=== PATIENT | male | born 1985 | race Caucasian/White ===

== ENCOUNTER → 2021-08-05 11:37 | Outpatient (BNVA) | payer MEDICARE, MEDICAID, SELFPAY | PROVIDERS: PCP Internal Medicine; Visit Provider Nurse Practitioner Family | DX: R56.9 Unspecified convulsions (principal); F31.9 Bipolar disorder, unspecified; Z79.899 Other long term (current) drug therapy | CPT/HCPCS: 99212 ==

== ENCOUNTER → 2022-01-20 09:24 | Outpatient (BNVA) | payer MEDICARE, SELFPAY | PROVIDERS: PCP Internal Medicine; Visit Provider Nurse Practitioner Family | DX: R56.9 Unspecified convulsions (principal); F31.9 Bipolar disorder, unspecified; R06.83 Snoring; G47.19 Other hypersomnia | CPT/HCPCS: 99212 ==

== ENCOUNTER → 2022-02-02 16:03 | Outpatient (REF) | payer OTHER, SELFPAY | LOC: HO.SL 16:03 | PROVIDERS: PCP Internal Medicine; Visit Provider Nurse Practitioner Family | DX: R06.83 Snoring (principal); G47.19 Other hypersomnia; R56.9 Unspecified convulsions | CPT/HCPCS: 95806 ==

== ENCOUNTER 2023-03-31 14:13 | Outpatient (AMB) | payer OTHER, SELFPAY ==
--- NOTE | 2023-03-31 14:18 | MHC.OFFVIS ---
Intake Vital Signs 03/31/23 14:31 Height 5 ft 11 in Weight 193 lb BMI 26.9 BP 124/76 Blood Pressure Location Rt brachial Position Sitting Pulse 70 Pulse Source Pulse Oximeter Pulse Oximetry (%) 98 Oxygen Delivery Method Room Air Intake Visit Reasons: f/u for seizures disorders - Confirmed Intake Note: Patient presents for follow up seizures. I think I had a seizure maybe last month Allergies No Known Allergies Allergy (Verified 03/31/23 14:31) Medication List - Last Reconciled 03/31/23 by SATHYA Cain amlodipine 2.5 mg PO DAILY aspirin 81 mg PO DAILY atorvastatin 80 mg PO DAILY clonazepam 2 mg orally for seizure lasting > 2 minutes. 30 days clopidogrel 75 mg PO DAILY divalproex ER 4 tabs qam & 5 tabs qhs PO; 90 days lisinopril 2.5 mg PO DAILY HPI HPI Comments History of Present Illness Details 37-yr-old male presents for f/u visit, last visit was just over a year ago. Pt denies any significant interval medical changes. He states his cardiac status is stable. Pt states his machine bander and cellophaner helper tells him that his HR may be a bit higher at times. He has lost about 30 lbs in the last yr- eating less, sometimes 1 meal a day. He is doing some CONTRACT DESIGNER work. Pt does note a lot of increased stress r/t his mother being ill, his grandmother is in end of life care, and he is now living back at home to help his dad. He is now being f/b psychiatry and a therapist- on quetiapine 100mg qhs for bipolar and sleep. His last seizure was one month ago, the previous one was in October- just after his mom had gone to the hospital. These were both typical nocturnal seizures a/w urinary incontinence. Compliant w/ Depakote ER bid- however may take at different times d/t inconsistent sleep/wake habits d/t now living back home. HST, 02/2022, did not show sleep apnea- AHI was 0.4/hr w/ average SpO2 91% and O2 [place] 81% (SpO2 < 88% x's 1.9min and < 90% x's 47 min). PFSH Family History Father HTN (hypertension) Arthritis Mother HTN (hypertension) Diabetes mellitus Depression Anxiety Social History Alcohol intake: former Patient Tobacco Use Status: Never used Tobacco Substance Use Type: Marijuana Review of Systems Const All systems reviewed & are unremarkable except as noted in HPI and below Physical Exam Vital Signs: Last Vital Signs Pulse 70 03/31/23 14:31 BP 124/76 03/31/23 14:31 Pulse Ox 98 03/31/23 14:31 Oxygen Delivery Method Room Air 03/31/23 14:31 BMI result Body Mass Index 26.9 Const General: cooperative and no acute distress Orientation/consciousness: patient oriented x3 HEENT Head: Yes normocephalic Resp Effort & Inspection: normal respiratory effort and able to speak in complete sentences Neuro General: patient oriented x3, gait normal and CN's II-XI intact bilaterally Cognition (Neuro): normal cognition Motor exam (neuro): 5/5 motor strength present throughout Psych Appearance: grossly normal Mental Status: mental status grossly normal Speech and movement: Normal speech and movement present Affect: normal affect Attitude: cooperative Thought process: Normal thought process present Thought content: Normal thought content present Insight: Good insight present (Psych) Judgement: Good judgement present (Psych) Assessment & Plan Assessment & Plan (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 Continue Clonazepam 2mg ODT for breakthrough seizure lasting > 2 min. Check CBC, CMP, depakote levels today- lab slips given today. Reviewed HST- no evidence of sleep apnea. Quetiapine per psychiatry. Continue CV risk reduction tx per cardiology. f/u in 6 months or sooner prn Orders: Orders Complete Blood Count Auto Diff Today R56.9 - Unspecified convulsions Comprehensive Met. Panel Today R56.9 - Unspecified convulsions Valproate Today R56.9 - Unspecified convulsions Medications: New quetiapine 100 mg PO BEDTIME Refilled divalproex ER 4 tabs qam & 5 tabs qhs PO; 810 tabs 1RF 90 days Coding Level of Care Code Est Pt Level 4 (77904) Diagnoses Seizures R56.9 Sleep difficulties G47.9
[2023-03-31 14:31] VITALS: BP 124/76; PULSE 70; O2SAT 98; BMI 26.9
== END 2023-03-31 15:09 | disposition home or self-care (01) ==
PROVIDERS: PCP Internal Medicine; Visit Provider Nurse Practitioner Family
DX: R56.9 Unspecified convulsions (principal); G47.9 Sleep disorder, unspecified
CPT/HCPCS: 99214

== ENCOUNTER → 2023-03-31 14:13 | Outpatient (BNVA) | payer OTHER, SELFPAY | PROVIDERS: PCP Internal Medicine; Visit Provider Nurse Practitioner Family | DX: R56.9 Unspecified convulsions (principal); G47.9 Sleep disorder, unspecified | CPT/HCPCS: 99212 ==

== ENCOUNTER 2023-11-04 08:36 | Outpatient (AMB) | payer OTHER, SELFPAY ==
[2023-11-04 08:41] VITALS: BP 130/92; PULSE 77; O2SAT 98; BMI 27.6
--- NOTE | 2023-11-04 08:41 | A.OFFVIS_ITS ---
Vital Signs 11/04/23 08:41 Height 5 ft 11 in Weight 198 lb BMI 27.6 BP 130/92 H Blood Pressure Location Rt brachial Position Sitting Pulse 77 Pulse Source Pulse Oximeter Pulse Oximetry (%) 98 Oxygen Delivery Method Room Air Intake Visit Reasons: Follow up Intake Note: Patient presents for follow up. patient last epilepsy attsck was in February 2023 Allergies No Known Allergies Allergy (Verified 11/04/23 08:44) Medication List - Last Reconciled 11/04/23 by SATHYA Cain amlodipine 2.5 mg PO DAILY aspirin 81 mg PO DAILY atorvastatin 80 mg PO DAILY clonazepam 2 mg orally for seizure lasting > 2 minutes. 30 days clopidogrel 75 mg PO DAILY divalproex ER 4 tabs qam & 5 tabs qhs PO; 90 days lisinopril 2.5 mg PO DAILY pramipexole mg PO quetiapine 100 mg PO BEDTIME HPI Comments Details: 38-yr-old male presents for f/u visit of seizure. Pt denies any significant interval medical changes, however pt states that he has not been taking his cardiac meds as he has not had f/u w/ cardiology in a long time. States he missed his recent f/u here and w/ cardiology d/t issues with transportation and his mother is quite ill- now living in a intermediate but needing frequent hospitalizations. Pt is mildy hypertensive today- 130/92 w/ HR 77. He states his psychiatrist started him on pramipexole for his Bipolar tx- states he did have some lightheadedness initially but this resolved. He states his last seizure was in February. He is complaint w/ his AED tx. Last CBB, CMP, Depakote levels- WNL. PFSH Family History Father HTN (hypertension) Arthritis Mother HTN (hypertension) Diabetes mellitus Depression Anxiety Social History Alcohol intake: former Patient Tobacco Use Status: Never used Tobacco Substance Use Type: Marijuana Physical Exam Vital Signs: Last Vital Signs Pulse 77 11/04/23 08:41 BP 130/92 H 11/04/23 08:41 Pulse Ox 98 11/04/23 08:41 Oxygen Delivery Method Room Air 11/04/23 08:41 BMI result Body Mass Index 27.6 Const General: cooperative and no acute distress Orientation/consciousness: patient oriented x3 Resp Effort & Inspection: normal respiratory effort and able to speak in complete sentences Neuro General: patient oriented x3 Cranial nerves: Yes CN's II-XII intact bilaterally Cognition (Neuro): normal cognition Psych Appearance: grossly normal Mental Status: mental status grossly normal Speech and movement: Normal speech and movement present Affect: normal affect Attitude: cooperative Assessment & Plan Assessment & Plan (1) Seizures: Comment: Juvenile myotonic epilepsy Code(s): R56.9 - Unspecified convulsions Category: Medical (2) Bipolar disorder: Code(s): F31.9 - Bipolar disorder, unspecified Category: Medical (3) HTN (hypertension): Code(s): I10 - Essential (primary) hypertension Category: Medical (4) HLD (hyperlipidemia): Code(s): E78.5 - Hyperlipidemia, unspecified Category: Medical Plan Continue Depakote 2000mg qam and 2500mg qhs- try to take approx 12 hrs apart to reduce risk for breakthrough seizures. Continue Clonazepam 2mg ODT for breakthrough seizure lasting > 2 min. Check CBC, CMP, depakote levels today- lab slips given today. Pramipexole per psychiatry. Advised to monitor for drop attacks and comulsive behaviors. Continue CV risk reduction tx per cardiology- will refill ASA, lisinopril, amlodipine, atorvastatin. Pt advised to make f/u appt w/ cardiology- ? if he should resume Clopidogrel. f/u in 12 months or sooner prn Medications: Changed From atorvastatin 80 mg PO DAILY To atorvastatin 80 mg PO DAILY 90 days 90 tabs 1RF From lisinopril 2.5 mg PO DAILY To lisinopril 2.5 mg PO DAILY 90 days 90 tabs 1RF From amlodipine 2.5 mg PO DAILY To amlodipine 2.5 mg PO DAILY 90 days 90 tabs 1RF From aspirin 81 mg PO DAILY To aspirin 81 mg PO DAILY 90 days 90 tabs 1RF Refilled divalproex ER 4 tabs qam & 5 tabs qhs PO; 90 days 810 tabs 1RF clonazepam 2 mg orally for seizure lasting > 2 minutes. 30 days 5 tabs 3RF Coding Level of Care Code Est Pt Level 4 (00895) Diagnoses Seizures R56.9 Bipolar disorder F31.9 HTN (hypertension) I10 HLD (hyperlipidemia) E78.5
== END 2023-11-04 09:17 | disposition home or self-care (01) ==
PROVIDERS: PCP Internal Medicine; Visit Provider Nurse Practitioner Family
DX: R56.9 Unspecified convulsions (principal); F31.9 Bipolar disorder, unspecified; I10 Essential (primary) hypertension; E78.5 Hyperlipidemia, unspecified
CPT/HCPCS: 99214

== ENCOUNTER → 2023-11-04 08:36 | Outpatient (BNVA) | payer OTHER, SELFPAY | PROVIDERS: PCP Internal Medicine; Visit Provider Nurse Practitioner Family | DX: R56.9 Unspecified convulsions (principal); I10 Essential (primary) hypertension; E78.5 Hyperlipidemia, unspecified; F31.9 Bipolar disorder, unspecified | CPT/HCPCS: 99212 ==

== ENCOUNTER 2024-12-26 14:52 | Outpatient (AMB) | payer OTHER, SELFPAY ==
--- NOTE | 2024-12-26 15:30 | A.OFFVIS_ITS ---
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 30 days divalproex ER 4 tabs qam & 5 tabs qhs PO; 90 days pramipexole mg PO quetiapine 100 mg PO BEDTIME HPI Comments Details: 39-yr-old male presents for f/u visit of seizure. He was last seen in October of 2023. Patient reports his last breakthrough seizure was in April. He states he thinks he was just under a lot of stress at the time, and forgot to take his meds. After this, he is trying to be much more consistent with taking his AED therapy. He has not had labs done in quite some time. He lost both of his parents in the last few months He has a therapist, who he likes, and a psychiatrist. 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 He has not seen his rn rehabilitation in a while. [facility] Family History Father HTN (hypertension) Arthritis Mother HTN (hypertension) Diabetes mellitus Depression Anxiety Social History Alcohol intake: former Patient Tobacco Use Status: Never used Tobacco Substance Use Type: Marijuana Physical Exam Vital Signs: Last Vital Signs Pulse 75 12/26/24 15:32 BP 120/90 H 12/26/24 15:32 Pulse Ox 96 12/26/24 15:32 Oxygen Delivery Method Room Air 12/26/24 15:32 BMI result Body Mass Index 32.2 Const General: cooperative and no acute distress Orientation/consciousness: patient oriented x3 Resp Effort & Inspection: normal respiratory effort and able to speak in complete sentences Neuro General: patient oriented x3 Cranial nerves: Yes CN's II-XII intact bilaterally Cognition (Neuro): normal cognition Psych Appearance: grossly normal Mental Status: mental status grossly normal Speech and movement: Normal speech and movement present Affect: normal affect Attitude: cooperative Assessment & Plan Assessment & Plan (1) Seizures: Comment: Juvenile myotonic epilepsy Code(s): R56.9 - Unspecified convulsions Category: Medical (2) Bipolar disorder: Code(s): F31.9 - Bipolar disorder, unspecified Category: Medical Qualifiers: Active/Remission status: in remission of unspecified degree Qualified Code(s): F31.70 - Bipolar disorder, currently in remission, most recent episode unspecified (3) HTN (hypertension): Code(s): I10 - Essential (primary) hypertension Category: Medical (4) HLD (hyperlipidemia): Code(s): E78.5 - Hyperlipidemia, unspecified Category: Medical Plan Continue Depakote 2000mg qam and 2500mg qhs- try to take approx 12 hrs apart to reduce risk for breakthrough seizures. Continue Clonazepam 2mg ODT for breakthrough seizure lasting > 2 min. Check CBC, CMP, depakote levels- patient states he will come back to do these Pramipexole per psychiatry. Monitor for drop attacks and compulsive behaviors. Patient has stopped all of his cardiovascular medications-advised to follow-up with cardiology. f/u in 12 months or sooner prn Orders: Orders Comprehensive [place]. Panel Fast Today R56.9 - Unspecified convulsions Valproate Today R56.9 - Unspecified convulsions Complete Blood Count Auto Diff Today R56.9 - Unspecified convulsions Medications: Refilled divalproex ER 4 tabs qam & 5 tabs qhs PO; 90 days 810 tabs 1RF clonazepam 2 mg orally for seizure lasting > 2 minutes. 5 tabs 3RF 30 days divalproex ER 4 tabs qam & 5 tabs qhs PO; 810 tabs 3RF 90 days Coding Level of Care Code Est Pt Level 4 (92638) Diagnoses Seizures R56.9 Bipolar affective disorder in remission F31.70 Active/Remission status: in remission of unspecified degree HTN (hypertension) I10 HLD (hyperlipidemia) E78.5
[2024-12-26 15:32] VITALS: BP 120/90; PULSE 75; O2SAT 96; BMI 32.2
--- OUTSIDE RECORDS SUMMARY | 2024-12-26 18:27 | XMS_ITS ---
Author Name [facility] Organization Unknown Encounters Encounter Type Encounter Reason Primary Diagnosis Location Date Ambulatory ST elevation ([facility]) myocardial infarction of unspecified site [facility] 09/22/2021 Care Team Organization Name Specialty Phone Email Start Date End Da te [facility] 09/24/2021 [facility] 09/22/2021 09/22/2021
--- OUTSIDE RECORDS SUMMARY | 2024-12-26 18:27 | XMS_ITS | Clinical Summary ---
Author Organization [facility] Address [address] [place] [address] Care Team Providers Care Etl Lead Name Role Phone Unavailable Primary Care Provider Unavailabl e Social History Tobacco Use Types Packs/Day Years Used Date Smoking Tobacco: Never Assessed Sex and Gender Information Value Date Recorded Sex Assigned at Not on file Legal Sex Male 7:01 PM EST Gender Identity Not on file Sexual Orientation Not on file Plan of Treatment Health Maintenance Due Date Last Done Comments Hepatitis C Virus Screening 1984 HIV Screening 1997 DTaP/Tdap/Td Vaccines (1 - Tdap) 09/26/2003 Hepatitis B Vaccines (1 of 3 - 19+ 3-dose series) 09/26/2003 HPV Vaccines (1 - 3-dose SCD M series) 09/26/2011 Influenza Vaccine 11/09/2024 COVID-19 Vaccine (1 - 2023-2 5 season) 2024 Pneumococcal Vaccine: Pediat brianne (0-5 Years) and At-Risk Patients (6 to 49 Years) Aged Out No longer eligible b ased on patient's age to complete this topic Insurance [employer] PART A & B
== END 2024-12-27 08:21 | disposition home or self-care (01) ==
LOC: HO.HSMS 14:53
PROVIDERS: PCP Internal Medicine; Visit Provider Nurse Practitioner Family
DX: R56.9 Unspecified convulsions (principal); F31.70 Bipolar disorder, currently in remission, most recent episode unspecified; I10 Essential (primary) hypertension; E78.5 Hyperlipidemia, unspecified
CPT/HCPCS: 99214

== ENCOUNTER → 2024-12-26 14:52 | Outpatient (BNVA) | payer OTHER, SELFPAY | PROVIDERS: PCP Internal Medicine; Visit Provider Nurse Practitioner Family | DX: G40.B09 Juvenile myoclonic epilepsy, not intractable, without status epilepticus (principal); F31.70 Bipolar disorder, currently in remission, most recent episode unspecified; I10 Essential (primary) hypertension; E78.5 Hyperlipidemia, unspecified | CPT/HCPCS: 99212 ==